=== PATIENT | female | born 1955 | race African-American/Black ===

== ENCOUNTER 2016-10-11 11:13 | Day surgery (SDC) | payer OTHER, MEDICARE ==
--- NOTE | ~2016-10-11 | EGD ---
EGD REPORT [facility] [address] [address] NAME: MONTSERRAT MARRERO : [birth year] STATUS : REG [facility]#: [id number] AGE: 61 ADM/REG DATE : 10/11/16 MR#: [id number] REPORT SERV DATE: 10/11/16 DICTATED BY: LAURA CARTWRIGHT DATE: 10/11/16 REPORT STATUS : Draft [facility]: [facility] DATE: 10/11/16 Endoscopy Center Patient Name: Montserrat Marrero Date of : 1955 Attending MD: LAURA CARTWRIGHT MD Procedure Date No Time: 10/11/2016 Procedure: Upper GI endoscopy Indications: Upper abdominal pain, Iron deficiency anemia secondary to chronic blood loss, Melena Referring MD: JOYCE LANCASTER Medicines: Propofol per Anesthesia Complications: No immediate complications. Estimated blood loss: None. Procedure: Pre-Anesthesia Assessment: - After reviewing the risks and benefits, the patient was deemed in satisfactory condition to undergo the procedure. - Prior to the procedure, a History and Physical was performed, and patient medications and allergies were reviewed. The patient's tolerance of previous anesthesia was also reviewed. The risks and benefits of the procedure and the sedation options and risks were discussed with the patient. All questions were answered, and informed consent was obtained. Prior Anticoagulants: The patient has taken no previous anticoagulant or antiplatelet agents. ASA Grade Assessment: III - A patient with severe systemic disease. After reviewing the risks and benefits, the patient was deemed in satisfactory condition to undergo the procedure. After obtaining informed consent, the endoscope was passed under direct vision. Throughout the procedure, the patient's blood pressure, pulse, and oxygen saturations were monitored continuously. The GIF [id number] was introduced through the mouth, and advanced to the jejunum. The upper GI endoscopy was accomplished without difficulty. The patient tolerated the procedure well. Findings: The examined esophagus was normal. The entire examined stomach and gastroesophageal junction (on retroflexion) were normal. The examined duodenum was normal. Biopsies were taken with a cold forceps for histology. Estimated blood loss: none. Impression: - Normal esophagus. EGD REPORT [address] [address] NAME: MONTSERRAT MARRERO : [birth year] STATUS : REG [facility]#: [id number] AGE: 61 ADM/REG DATE : 10/11/16 MR#: [id number] REPORT SERV DATE: 10/11/16 DICTATED BY: LAURA CARTWRIGHT DATE: 10/11/16 REPORT STATUS : Draft TRANSCRIBED BY: [employer] DATE: 10/11/16 - Normal stomach and gastroesophageal junction. - Normal examined duodenum. Biopsied. - Non-erosive esophageal reflux (NERD) disease present. Recommendation: - Discharge patient to home (ambulatory). - Return to previous diet. - Continue present medications including Prilosec (omeprazole) 40 mg daily before breakfast. - Await pathology results. - Perform a colonoscopy today. - Patient has a contact number available for emergencies. The signs and symptoms of potential delayed complications were discussed with the patient. Return to normal activities tomorrow. Written discharge instructions were provided to the patient. Procedure Code(s): --- Professional --- 03699, Esophagogastroduodenoscopy, flexible, transoral; with biopsy, single or multiple Diagnosis Code(s): --- Professional --- K21.9, Gastro-esophageal reflux disease without esophagitis R10.10, Upper abdominal pain, unspecified D50.0, Iron deficiency anemia secondary to blood loss (chronic) K92.1, Melena CPT copyright 2013 [employer]. All rights reserved. The codes documented in this report are preliminary and upon certified travel counselor review may be revised to meet current compliance requirements. LAURA CARTWRIGHT MD 10/11/2016 1:59 PM This report has been signed electronically. Number of Addenda: 0 Note Initiated On: 10/11/2016 1:37 PM Scope Withdrawal Time 0 hours 0 minutes 0 seconds [address] [place] [address]
--- NOTE | ~2016-10-11 | EGD ---
EGD REPORT [facility] [address] [address] NAME: MONTSERRAT MARRERO : [birth year] STATUS : REG [facility] PAT#: [id number] AGE: 61 ADM/REG DATE : 10/11/16 MR#: [id number] REPORT SERV DATE: 10/11/16 DICTATED BY: LAURA CARTWRIGHT DATE: 10/11/16 REPORT STATUS : Draft TRANSCRIBED BY: [facility] DATE: 10/11/16 Endoscopy Center Patient Name: Montserrat Marrero Date of : 1955 Attending MD: LAURA CARTWRIGHT MD Procedure Date No Time: 10/11/2016 Procedure: Colonoscopy Indications: Lower abdominal pain, Iron deficiency anemia secondary to chronic blood loss Referring MD: JOYCE LANCASTER Medicines: Propofol per Anesthesia Complications: No immediate complications. Estimated blood loss: None. Procedure: Pre-Anesthesia Assessment: - After reviewing the risks and benefits, the patient was deemed in satisfactory condition to undergo the procedure. - Prior to the procedure, a History and Physical was performed, and patient medications and allergies were reviewed. The patient's tolerance of previous anesthesia was also reviewed. The risks and benefits of the procedure and the sedation options and risks were discussed with the patient. All questions were answered, and informed consent was obtained. Prior Anticoagulants: The patient has taken Xarelto (rivaroxaban), last dose was 3 days prior to procedure. ASA Grade Assessment: III - A patient with severe systemic disease. After reviewing the risks and benefits, the patient was deemed in satisfactory condition to undergo the procedure. After I obtained informed consent, the scope was passed under direct vision. Throughout the procedure, the patient's blood pressure, pulse, and oxygen saturations were monitored continuously. The CF [id number] was introduced through the anus and advanced to the cecum, identified by appendiceal orifice and ileocecal valve. The colonoscopy was performed with difficulty due to significant looping and the patient's body habitus. The ileocecal valve and appendiceal orifice were photographed. The patient tolerated the procedure well. The quality of the bowel preparation was adequate. The bowel preparation used was an extended bowel preppolyethylene glycol (PEG) and magnesium citrate. Scope withdrawal time was greater than 6 minutes. Findings: The perianal and digital rectal examinations were normal. Pertinent EGD REPORT [place] [id number] [facility] [place]. [address] NAME: MONTSERRAT MARRERO : [birth year] STATUS : REG [facility]#: [id number] AGE: 61 ADM/REG DATE : 10/11/16 MR#: [id number] REPORT SERV DATE: 10/11/16 DICTATED BY: LAURA CARTWRIGHT DATE: 10/11/16 REPORT STATUS : Draft TRANSCRIBED BY: [facility] DATE: 10/11/16 negatives include normal sphincter tone. Non-bleeding internal hemorrhoids were found during retroflexion and were small and Grade I (internal hemorrhoids that do not prolapse). The exam was otherwise without abnormality. Impression: - Non-bleeding internal hemorrhoids. - The examination was otherwise normal. - Irritable bowel syndrome with constipation/Opioid-induced constipation. Recommendation: - Discharge patient to home (ambulatory). - Return to previous diet. - Continue present medications including Miralax daily. - Resume Xarelto (rivaroxaban) at prior dose today. - Collect Hemoccults on three spontaneously passed stools annually. - Repeat colonoscopy in 10 years for screening purposes. - Return to GI clinic PRN. - Patient has a contact number available for emergencies. The signs and symptoms of potential delayed complications were discussed with the patient. Return to normal activities tomorrow. Written discharge instructions were provided to the patient. Procedure Code(s): --- Professional --- 21106, Colonoscopy, flexible, proximal to splenic flexure; diagnostic, with or without collection of specimen(s) by brushing or washing, with or without colon decompression (separate procedure) Diagnosis Code(s): --- Professional --- K64.0, First degree hemorrhoids K58.9, Irritable bowel syndrome without diarrhea R10.30, Lower abdominal pain, unspecified D50.0, Iron deficiency anemia secondary to blood loss (chronic) CPT copyright 2013 [employer]. All rights reserved. The codes documented in this report are preliminary and upon towel rolling machine operator review may be revised to meet current compliance requirements. LAURA CARTWRIGHT MD 10/11/2016 2:22 PM This report has been signed electronically. EGD REPORT [facility] [address] [facility] [address] NAME: MONTSERRAT MARRERO : [birth year] STATUS : REG [facility] PAT#: [id number] AGE: 61 ADM/REG DATE : 10/11/16 MR#: [id number] REPORT SERV DATE: 10/11/16 DICTATED BY: LAURA CARTWRIGHT DATE: 10/11/16 REPORT STATUS : Draft TRANSCRIBED BY: [employer] DATE: 10/11/16 Number of Addenda: 0 Note Initiated On: 10/11/2016 1:34 PM Scope Withdrawal Time 0 hours 6 minutes 22 seconds [address] [place] [id number]
[~2016-10-11 11:13] MED LIST: ASAB PO; ASTELIN NAS; BENTYL10 PO; BREO ELLIPTA 21 EACH INH; BREO ELLIPTA INH; C5 PO; CENTRUM PO; D100 PO; DSS PO; DULERA 100 MCG/13 GM INH; ENBREL25 MG SC; ENBREL50 MG/M1 SC; ENDOCET1 TA1 PO; FLEX PO; FLONASE NAS; FOLIC ACID PO; FOLIC ACID400 MC1 PO; FOLIC ACID800 MCG PO; FOLIC PO; HCTZ25B PO; HYDROCHLOROT25 MG PO; IBU800 PO; K500 PO; KDUR10 PO; KLOR-CON 1010 MEQ PO; KLOR-CON M1010 MEQ PO; L20 PO; LEVOTHYROXIN150 MCG PO; LISINOPRIL40 MG PO; LORT7 PO; LORTAB 5 PO; METAMUCIL CAN7 OZ PO; MIRALAXPKT PO; MOBIC7.5 PO; MTX2.5 PO; MULTIVIT/MIN PO; NITROII10C TOP; NITROQUICK0.4 MG SL; NITROSTAT0.4 MG SL; NORV5 PO; NYS500UDL PO; OXYCOD PO; P5 PO; PCET PO; PERCOCET1 TA2 PO; PRILOSEC40 MG PO; PRIN20 PO; PROAIR HFA INH; ROBITUSSIN DM PO; SENTAB PO; SYN.15 PO; T PO; TYLENOL ARTH650 MG PO; ULTRAM ER200 MG PO; VITAMIN B-122500 MCG PO; VITAMIN B-122500 MCG SL; VITAMIN D1000 UNI1 PO; XARELTO20 MG PO
== END 2016-10-11 23:59 | disposition home health service (06) ==
LOC: DMU 11:13
PROVIDERS: Internal Medicine Gastroenterology
PROC: 0DB98ZX Excision of Duodenum, Via Natural or Artificial Opening Endoscopic, Diagnostic (ICD-10-PCS; principal; 2016-10-11 12:30)
PROC: 0DJD8ZZ Inspection of Lower Intestinal Tract, Via Natural or Artificial Opening Endoscopic (ICD-10-PCS; 2016-10-11 12:30)
DX: K64.0 First degree hemorrhoids (principal); K21.9 Gastro-esophageal reflux disease without esophagitis; K58.9 Irritable bowel syndrome, unspecified; I10 Essential (primary) hypertension; E03.9 Hypothyroidism, unspecified; E66.01 Morbid (severe) obesity due to excess calories; J45.909 Unspecified asthma, uncomplicated; M06.9 Rheumatoid arthritis, unspecified; Z88.5 Allergy status to narcotic agent; Z88.8 Allergy status to other drugs, medicaments and biological substances; Z86.711 Personal history of pulmonary embolism; Z79.82 Long term (current) use of aspirin; Z79.899 Other long term (current) drug therapy; Z98.890 Other specified postprocedural states; Z98.51 Tubal ligation status
CPT/HCPCS: 88305